=== PATIENT | male | born 1965 | race Caucasian/White ===

== ENCOUNTER 2018-11-19 19:55 | Emergency (ER) | payer OTHER ==
[~2018-11-19] VITALS: Ht 180.3 cm; Wt 91.4 kg
[~2018-11-19 19:55] MED LIST: ASPIRIN PO; ATOR1TAB21 PO; B-12100010 PO; BACI500O74 EXT; CLAR1TAB2 PO; CYAN100049 PO; GABA-843 PO; HYDR-2541 PO; HYDR-3719 PO; IBUP-1022 PO; KEFL500C17 PO; LIPI20TA PO; LISI40TA52 PO; LORATADINE; OMEP40CA97 PO
[2018-11-19] MEDS ORDERED: NS 1,000 ML IV ONE ×2 (20:15→21:45)
[2018-11-19] MEDS ORDERED: methylPREDNISolone INJ 125 MG/2 ML VIAL (J2930) IV ONE (20:15)
[2018-11-19 21:02] LABS: BASO % 0.1 % (0.0-1.0); EOS # 0.1 10^3/uL (0.0-0.50); EOS % 1.4 % (0.0-3.0); HEMATOCRIT 49.6 % (42.0-52.0); HEMOGLOBIN 17.1 g/dl (13.5-17.5); LYMPH # 2.2 10^3/uL (1.5-4.5); LYMPH % 21.6 % (24.0-44.0); MEAN CORPUSCULAR HEMOGLOBIN 31.4 pg (27.0-33.0); MEAN CORPUSCULAR HGB CONC 34.5 g/dl (32.0-36.5); MEAN CORPUSCULAR VOLUME 91.2 fl (80.0-96.0); MONO # 0.3 10^3/uL (0.0-0.8); MONO % 2.9 % (0.0-5.0); NEUTROPHILS # 7.5 10^3/uL (1.8-7.7); NEUTROPHILS % 73.6 % (36.0-66.0); PLATELET COUNT, AUTOMATED 207 10^3/uL (150-450); RED BLOOD COUNT 5.44 10^6/uL (4.30-6.10); WHITE BLOOD COUNT 10.2 10^3/uL (4.0-10.0)
[2018-11-19 21:25] LABS: OSMOLALITY SERUM 325 MOSM/KG (275-295)
[2018-11-19 21:39] LABS: BLOOD UREA NITROGEN 7 MG/DL (7-18); CALCIUM LEVEL 8.6 MG/DL (8.5-10.1); CARBON DIOXIDE LEVEL 20 MEQ/L (21-32); CHLORIDE LEVEL 101 MEQ/L (98-107); CK-MB VALUE MASS 3.2 NG/ML (<3.6); CPK CREATINE PHOSPHOKINASE 388 U/L (39-308); CREATININE FOR GFR 1.03 MG/DL (0.70-1.30); GLOMERULAR FILTRATION RATE > 60.0 (>56); GLUCOSE, FASTING 165 MG/DL (70-100); MB/CK RELATIVE INDEX 0.82 (< OR =4); POTASSIUM SERUM 3.5 MEQ/L (3.5-5.1); SODIUM LEVEL 137 MEQ/L (136-145); TROPONIN I < 0.02 NG/ML (< 0.10)
[2018-11-20 01:32] LABS: VENOUS BASE EXCESS -7.9 (-2.0-2.0); VENOUS HCO3 16.6 MEQ/L (23.0-27.0); VENOUS O2 SATURATION 97.7 % (60.0-80.0); VENOUS PARTIAL PRESSURE CO2 31.9 mmHg (38.0-50.0); VENOUS PARTIAL PRESSURE O2 104.2 mmHg (30.0-50.0); VENOUS PH 7.334 UNITS (7.330-7.430); VENOUS STANDARD HCO3 18.2 MEQ/L; VENOUS TOTAL CO2 17.6 MEQ/L (24.0-28.0)
[2018-11-20] MEDS ORDERED: HYDR-3719 PO (02:09)
[2018-11-20] MEDS ORDERED: PRED20TA PO (02:28)
[2018-11-20 02:49] VITALS: BP 169/99
[2018-11-20 02:56] LABS: AMPHETAMINES LEVEL URINE NEGATIVE (NEGATIVE); BARBITURATES URINE NEGATIVE (NEGATIVE); BENZODIAZEPINES URINE NEGATIVE (NEGATIVE); CANNABINOIDS URINE NEGATIVE (NEGATIVE); COCAINE METABOLITE URINE NEGATIVE (NEGATIVE); METHADONE URINE NEGATIVE (NEGATIVE); OPIATES URINE POSITIVE (NEGATIVE); PHENCYCLIDINE URINE NEGATIVE (NEGATIVE)
--- NOTE | 2018-11-20 06:31 | ECGEPIP ---
[facility] - ED Test Date: 2018-11-19 Pat Name: ULI MCMILLAN Department: Room: - Gender: Male [employer] Developer: DINAH : 1965 Requested By: BERNIE Mendez Order Number: [id number] Reading MD: Sonali Mccord Measurements Intervals [place] Rate: 91 P: 40 SC: 152 QRS: -48 QRSD: 100 T: 14 QT: 380 QTc: 468 Interpretive Statements SINUS RHYTHM INCOMPLETE RIGHT BUNDLE BRANCH BLOCK LAD LEFT ANTERIOR FASCICULAR BLOCK POSSIBLE ANTERIOR MYOCARDIAL INFARCTION, OF INDETERMINATE AGE PROLONGED QTC DELAYED R WAVE PROGRESSION NONSPECIFIC ST T WAVE CHANGES CW 11/11/[address] T WAVE CHANGES Electronically Signed on 11-20-2018 6:31:25 EDT by Sonali Mccord
--- NOTE | 2018-11-21 11:54 | REP ---
AP PORTABLE CHEST: 11/19/2018. COMPARISON: 11/11/2015. CLINICAL HISTORY: Dyspnea and cough. FINDINGS: Lungs are very hypoinflated. There are crowded markings in the base. Patchy basilar atelectatic changes are noted. Posterior lower lung zone infiltrates, atelectasis, or effusion could be obscured. No gross effusion, dense consolidation with atelectasis, or other acute finding. Heart size not enlarged for this degree of inflation and portable technique. Oxygen tubing overlies the chest as does C6-7 anterior cervical fusion hardware. Degenerative changes of the left shoulder and AC joint as well as the spine. IMPRESSION: 1. Hypoinflated chest with some crowded markings in the bases and exaggeration of heart size. That said, no dense consolidation with air bronchogram, gross effusion, or edema. Electronically Signed by Michel Flores MD 11/21/2018 12:17 P
== END 2018-11-20 03:07 | disposition home or self-care (01) ==
LOC: EDBD 19:55 → M ED 19:55
DX: T78.40XA Allergy, unspecified, initial encounter (principal); I45.19 Other right bundle-branch block; I44.4 Left anterior fascicular block; I10 Essential (primary) hypertension; Z72.0 Tobacco use; Z79.82 Long term (current) use of aspirin; Z79.899 Other long term (current) drug therapy
CPT/HCPCS: 36600; 71045; 80048; 80307; 82550; 82553; 82803; 83605; 83930; 84484; 85025; 87040; 93005; 93041; 96374; 99285; G0480; J2930

== ENCOUNTER → 2021-03-19 | Outpatient (REF) ==
[~2021-03-19] MED LIST changes: +GABA-282 PO; -GABA-843 PO; +OMEP40CA4 PO; -OMEP40CA97 PO; +PRED20TA PO
--- NOTE | 2021-03-19 09:50 | REP ---
INDICATION: PAIN COMPARISON: None. TECHNIQUE: AP, lateral, bilateral oblique views right hand. FINDINGS: There is focal degenerative change at the 5th distal interphalangeal joint with osteophytosis along the dorsal aspect of the joint space along with minimal joint space narrowing. Findings may be related to old injury. Remainder of the examination appears normal/age-appropriate. No further arthritic degenerative changes are appreciated. No evidence for further acute or healed injury. Surrounding soft tissues are normal. IMPRESSION: Focal degenerative changes at the 5th D IP joint. Otherwise normal examination. <Electronically signed by Clinton Stephenson > 03/19/21 [id number]
--- NOTE | 2021-03-19 09:51 | REP ---
INDICATION: PAIN COMPARISON: None. TECHNIQUE: AP, lateral, bilateral oblique views right foot. FINDINGS: Lateral view suggests pes planus. Very minimal joint space narrowing at the 1st metatarsophalangeal joint suggested. Remainder of the examination is essentially age-appropriate and normal. No evidence for acute or obvious healed injury. IMPRESSION: Mild changes as noted above. Essentially age-appropriate examination. <Electronically signed by Clinton Stephenson > 03/19/21 0957
--- NOTE | 2021-03-19 09:51 | REP ---
INDICATION: PAIN COMPARISON: None. TECHNIQUE: AP and lateral views left tibia/fibula FINDINGS: No acute fracture or dislocation. Joint spaces appear intact and essentially age-appropriate. Surrounding soft tissues are normal. IMPRESSION: Normal left tibia/fibular radiographs. No acute fracture or dislocation. <Electronically signed by Clinton Stephenson > 03/19/21 0953
== END ==
LOC: M PLAIMG 08:52
PROVIDERS: ATTEND Internal Medicine
DX: Z00.00 Encounter for general adult medical examination without abnormal findings (principal)

== ENCOUNTER 2022-12-08 14:17 | Inpatient (IN) | payer OTHER ==
[~2022-12-08] VITALS: Ht 188 cm; Wt 92.7 kg
[2022-12-08 17:50] LABS: BASO # 0.1 10^3/uL (0.0-0.2); BASO % 0.5 % (0.0-1.0); EOS # 0.2 10^3/uL (0.0-0.5); EOS % 1.6 % (0.0-3.0); HEMATOCRIT 37.7 % (42.0-52.0); HEMOGLOBIN 13.4 g/dl (13.5-17.5); LYMPH # 1.1 10^3/uL (1.5-5.0); LYMPH % 8.8 % (24.0-44.0); MEAN CORPUSCULAR HEMOGLOBIN 30.7 pg (27.0-33.0); MEAN CORPUSCULAR HGB CONC 35.5 g/dl (32.0-36.5); MEAN CORPUSCULAR VOLUME 86.3 fl (80.0-96.0); MONO % 8.1 % (2.0-8.0); NEUTROPHILS # 10.2 10^3/uL (1.5-8.5); NEUTROPHILS % 79.3 % (36.0-66.0); PLATELET COUNT, AUTOMATED 171 10^3/uL (150-450); RED BLOOD COUNT 4.37 10^6/uL (4.30-6.10); WHITE BLOOD COUNT 12.8 10^3/uL (4.0-10.0)
[2022-12-08] MEDS ORDERED: NS 1,000 ML IV ONE ×2 (17:50→18:55)
[2022-12-08 18:13] LABS: INR 1.11
[2022-12-08 18:14] LABS: CK-MB VALUE MASS 2.9 NG/ML (<3.6); PARTIAL THROMBOPLASTIN TIME 30.6 SECONDS (24.8-34.2)
[2022-12-08 18:16] LABS: D-DIMER QUANT 1.43 ug/mL (<0.5)
[2022-12-08 18:18] LABS: THYROID STIMULATING HORMONE 3.741 uIU/ML (0.55-4.78)
[2022-12-08 18:19] LABS: FREE THYROXINE INDEX 4.4 % (1.4-3.8); T UPTAKE 43.6 % (22.5-37.0)
[2022-12-08 18:26] LABS: ALBUMIN 3.9 G/DL (3.2-5.2); ALKALINE PHOSPHATASE 90 U/L (46-116); ALT/SGPT 53 U/L (7.0-40); AST/SGOT 77 U/L (<34); BILIRUBIN,TOTAL 0.6 MG/DL (0.3-1.2); BLOOD UREA NITROGEN 12 MG/DL (9-23); CALCIUM LEVEL 8.9 MG/DL (8.5-10.1); CARBON DIOXIDE LEVEL 23 MMOL/L (20-31); CHLORIDE LEVEL 87 MMOL/L (98-107); CPK CREATINE PHOSPHOKINASE 132 U/L (46-171); CREATININE FOR GFR 0.79 MG/DL (0.70-1.30); GLOMERULAR FILTRATION RATE > 60.0 (>56); GLUCOSE, FASTING 110 MG/DL (60-100); MB/CK RELATIVE INDEX 2.19 (< OR =4); SODIUM LEVEL 119 MMOL/L (136-145); TOTAL PROTEIN 7.3 G/DL (5.7-8.2)
[2022-12-08] MEDS ORDERED: POTASSIUM CHLORIDE 10MEQ SR TABLET PO ONE (18:55)
[2022-12-08] MEDS ORDERED: ISOVUE-370 76% 100ML VIAL As Ordered ONE (18:59)
[2022-12-08] MEDS ORDERED: LISI40TA4 PO (20:51)
[2022-12-08] MEDS ORDERED: HYDR-3490 PO (20:51)
[2022-12-08] MEDS ORDERED: ECOT81TA5 PO (20:51)
[2022-12-08] MEDS ORDERED: HOME MED LIST COMPLETE! XX SCH (20:55)
[2022-12-08] MEDS ORDERED: MOM 30ML SUSPENSION UDC PO PRN (22:40)
[2022-12-08] MEDS ORDERED: MAALOX 30 ML SUSP *UDC PO PRN (22:40)
[2022-12-08 23:01] VITALS: BP 118/72; TEMP 97.5; O2SAT 95
[2022-12-08 23:13] LABS: MAGNESIUM LEVEL 1.9 MG/DL (1.8-2.4)
[2022-12-08 23:56] LABS: OSMOLALITY SERUM 246 MOSM/KG (275-295)
[2022-12-09] MEDS: OMEPRAZOLE 20MG CAP PO SCH ×4 (00:59→20:26)
[2022-12-09] MEDS: CYANOCOBALAMIN 500 MCG TAB PO SCH ×2 (01:00→20:26)
[2022-12-09] MEDS: ATORVASTATIN 20 MG TAB PO SCH ×2 (01:00→20:26)
[2022-12-09] MEDS: GABAPENTIN 300 MG CAP PO SCH ×4 (01:00→20:24)
[2022-12-09] MEDS ORDERED: LORazepam 2 MG TAB PO PRN (01:30)
[2022-12-09 01:40] LABS: APPEARANCE, URINE CLEAR (CLEAR); BACTERIA, URINE AUTO NEGATIVE (NEGATIVE); BILIRUBIN, URINE AUTO NEGATIVE (NEGATIVE); BLOOD, URINE BLOOD NEGATIVE (NEGATIVE); COLOR, URINE YELLOW (YELLOW); GLUCOSE, URINE (UA) AUTO NEGATIVE (NEGATIVE); KETONE, URINE AUTO NEGATIVE (NEGATIVE); LEUKOCYTE ESTERASE, URINE AUTO NEGATIVE (NEGATIVE); NITRITE, URINE AUTO NEGATIVE (NEGATIVE); PROTEIN, URINE AUTO NEGATIVE (NEGATIVE); RBC, URINE AUTO 0 /HPF (0-3); SPECIFIC GRAVITY URINE AUTO 1.019 (1.002-1.035); SQUAMOUS EPITHELIAL CELL UR AU 0 /HPF (0-6); WBC, URINE AUTO 0 /HPF (0-3)
[2022-12-09] MEDS: THIAMINE 100 MG TAB PO SCH ×3 (01:55→20:26)
[2022-12-09 02:05] LABS: CREATININE,RANDOM URINE 58.2 MG/DL
[2022-12-09 03:27] VITALS: BP 115/58; TEMP 97.6; O2SAT 98
[2022-12-09 06:03] LABS: BASO # 0.1 10^3/uL (0.0-0.2); BASO % 0.5 % (0.0-1.0); EOS # 0.2 10^3/uL (0.0-0.5); EOS % 1.3 % (0.0-3.0); HEMOGLOBIN 13.2 g/dl (13.5-17.5); LYMPH # 1.2 10^3/uL (1.5-5.0); LYMPH % 9.2 % (24.0-44.0); MEAN CORPUSCULAR HEMOGLOBIN 30.2 pg (27.0-33.0); MEAN CORPUSCULAR HGB CONC 34.7 g/dl (32.0-36.5); MONO # 1.1 10^3/uL (0.0-0.8); MONO % 8.4 % (2.0-8.0); NEUTROPHILS # 10.2 10^3/uL (1.5-8.5); NEUTROPHILS % 79.2 % (36.0-66.0); PLATELET COUNT, AUTOMATED 175 10^3/uL (150-450); RED BLOOD COUNT 4.37 10^6/uL (4.30-6.10); WHITE BLOOD COUNT 12.9 10^3/uL (4.0-10.0)
[2022-12-09 06:24] VITALS: BP 108/63; TEMP 97.2; O2SAT 97
[2022-12-09 06:31] LABS: BLOOD UREA NITROGEN 10 MG/DL (9-23); CALCIUM LEVEL 8.7 MG/DL (8.5-10.1); CARBON DIOXIDE LEVEL 22 MMOL/L (20-31); CHLORIDE LEVEL 93 MMOL/L (98-107); CREATININE FOR GFR 0.54 MG/DL (0.70-1.30); GLOMERULAR FILTRATION RATE > 60.0 (>56); GLUCOSE, FASTING 103 MG/DL (60-100); MAGNESIUM LEVEL 2.1 MG/DL (1.8-2.4); POTASSIUM SERUM 2.9 MMOL/L (3.5-5.1); SODIUM LEVEL 124 MMOL/L (136-145)
[2022-12-09 07:24] VITALS: BP 100/58; TEMP 97.4; O2SAT 100
[2022-12-09 08:00] LABS: PHOSPHORUS LEVEL 3.7 MG/DL (2.5-4.9)
[2022-12-09] MEDS ORDERED: POTASSIUM CHLORIDE 10% LIQ 20MEQ/15ML UDC PO ONE (08:00)
[2022-12-09] MEDS: KCL 10MEQ/100ML SWI (KRUN) 10 MEQ in IV 1 EA IV SCH ×2 (08:05→09:42)
[2022-12-09 08:17] LABS: PROCALCITONIN 0.12 ng/ml
[2022-12-09] MEDS: MIRALAX *UNIT DOSE* 17GM PACKET PO SCH ×2 (09:00→16:35)
[2022-12-09] MEDS: SENOKOT S TAB PO SCH ×2 (09:00→20:26)
[2022-12-09] MEDS: ASPIRIN 81MG ENTERIC TABLET PO SCH (09:43)
[2022-12-09] MEDS: MULTIVITAMINS/MINERALS THERAP 1 TAB PO SCH (09:43)
[2022-12-09] MEDS: ENOXAPARIN 40MG/0.4ML SYRINGE (J1650 PER 10MG) SC SCH (09:43)
[2022-12-09] MEDS: FOLIC ACID 1MG TAB PO SCH (09:43)
[2022-12-09] MEDS ORDERED: POTASSIUM CHLORIDE 10MEQ SR TABLET PO SCH (12:00)
[2022-12-09 12:18] VITALS: BP 111/56; TEMP 97; O2SAT 95
[2022-12-09 12:52] LABS: BLOOD UREA NITROGEN 10 MG/DL (9-23); CALCIUM LEVEL 8.7 MG/DL (8.5-10.1); CARBON DIOXIDE LEVEL 22 MMOL/L (20-31); CHLORIDE LEVEL 94 MMOL/L (98-107); CREATININE FOR GFR 0.57 MG/DL (0.70-1.30); GLOMERULAR FILTRATION RATE > 60.0 (>56); GLUCOSE, FASTING 108 MG/DL (60-100); POTASSIUM SERUM 3.7 MMOL/L (3.5-5.1); SODIUM LEVEL 124 MMOL/L (136-145)
[2022-12-09] MEDS: LACTULOSE 20GM/30ML SYRUP UDC PO SCH (16:35)
[2022-12-09 17:02] VITALS: BP 109/53; TEMP 97.9; O2SAT 97
[2022-12-09 20:00] VITALS: BP 119/58; TEMP 97.3; O2SAT 98
[2022-12-09] MEDS: POTASSIUM CHLORIDE 10MEQ SR TABLET PO SCH (20:24)
[2022-12-09] MEDS: ANEXSIA, NORCO 7.5MG/325MG TABLET(HYDROCODONE/APAP) PO PRN (20:25)
[2022-12-09] MEDS: FLUTICASONE PROP 0.05% NASAL SPRAY 16 GM (FLONASE) NARES SCH (20:26)
[2022-12-10 04:23] LABS: BASO % 0.4 % (0.0-1.0); EOS # 0.2 10^3/uL (0.0-0.5); EOS % 1.9 % (0.0-3.0); HEMATOCRIT 36.3 % (42.0-52.0); HEMOGLOBIN 12.4 g/dl (13.5-17.5); LYMPH # 1.5 10^3/uL (1.5-5.0); LYMPH % 15.4 % (24.0-44.0); MEAN CORPUSCULAR HEMOGLOBIN 30.3 pg (27.0-33.0); MEAN CORPUSCULAR HGB CONC 34.2 g/dl (32.0-36.5); MEAN CORPUSCULAR VOLUME 88.8 fl (80.0-96.0); MONO # 0.9 10^3/uL (0.0-0.8); MONO % 8.9 % (2.0-8.0); NEUTROPHILS # 6.9 10^3/uL (1.5-8.5); NEUTROPHILS % 71.9 % (36.0-66.0); PLATELET COUNT, AUTOMATED 167 10^3/uL (150-450); RED BLOOD COUNT 4.09 10^6/uL (4.30-6.10); WHITE BLOOD COUNT 9.6 10^3/uL (4.0-10.0)
[2022-12-10 05:24] LABS: BLOOD UREA NITROGEN 8 MG/DL (9-23); CALCIUM LEVEL 9.1 MG/DL (8.5-10.1); CARBON DIOXIDE LEVEL 22 MMOL/L (20-31); CHLORIDE LEVEL 98 MMOL/L (98-107); CREATININE FOR GFR 0.59 MG/DL (0.70-1.30); GLOMERULAR FILTRATION RATE > 60.0 (>56); GLUCOSE, FASTING 99 MG/DL (60-100); MAGNESIUM LEVEL 1.9 MG/DL (1.8-2.4); POTASSIUM SERUM 3.5 MMOL/L (3.5-5.1); SODIUM LEVEL 128 MMOL/L (136-145)
[2022-12-10 08:00] VITALS: BP 115/58
[2022-12-10 08:08] VITALS: BP 114/58; TEMP 98; O2SAT 96
[2022-12-10] MEDS: ACETAMINOPHEN TAB 650MG DOSE (2X325MG) PO PRN ×2 (08:16→13:53)
[2022-12-10] MEDS: ASPIRIN 81MG ENTERIC TABLET PO SCH (09:21)
[2022-12-10] MEDS: LACTULOSE 20GM/30ML SYRUP UDC PO SCH ×2 (09:22→20:50)
[2022-12-10] MEDS: GABAPENTIN 300 MG CAP PO SCH ×3 (09:22→20:46)
[2022-12-10] MEDS: THIAMINE 100 MG TAB PO SCH ×2 (09:22→20:46)
[2022-12-10] MEDS: FOLIC ACID 1MG TAB PO SCH (09:22)
[2022-12-10] MEDS: ENOXAPARIN 40MG/0.4ML SYRINGE (J1650 PER 10MG) SC SCH (09:22)
[2022-12-10] MEDS: MULTIVITAMINS/MINERALS THERAP 1 TAB PO SCH (09:22)
[2022-12-10] MEDS: OMEPRAZOLE 20MG CAP PO SCH ×2 (09:22→20:45)
[2022-12-10] MEDS: SENOKOT S TAB PO SCH (09:22)
[2022-12-10] MEDS: MIRALAX *UNIT DOSE* 17GM PACKET PO SCH (09:23)
[2022-12-10] MEDS: POTASSIUM CHLORIDE 10MEQ SR TABLET PO SCH ×2 (09:23→20:45)
[2022-12-10] MEDS ORDERED: KCL 20MEQ in NS 1000ML 1,000 ML IV SCH (09:40)
[2022-12-10] MEDS: FLUTICASONE PROP 0.05% NASAL SPRAY 16 GM (FLONASE) NARES SCH ×2 (10:01→20:46)
[2022-12-10 12:26] VITALS: BP 112/66; TEMP 97.2; O2SAT 96
[2022-12-10 16:25] VITALS: BP 124/66; TEMP 97.7; O2SAT 95
[2022-12-10] MEDS: CYANOCOBALAMIN 500 MCG TAB PO SCH (20:44)
[2022-12-10] MEDS: ATORVASTATIN 20 MG TAB PO SCH (20:46)
[2022-12-10] MEDS: ANEXSIA, NORCO 7.5MG/325MG TABLET(HYDROCODONE/APAP) PO PRN (20:55)
[2022-12-11 04:42] VITALS: BP 136/82; TEMP 97; O2SAT 98
[2022-12-11] MEDS: ANEXSIA, NORCO 7.5MG/325MG TABLET(HYDROCODONE/APAP) PO PRN (05:57)
[2022-12-11 07:01] LABS: BASO # 0.1 10^3/uL (0.0-0.2); BASO % 0.6 % (0.0-1.0); EOS # 0.1 10^3/uL (0.0-0.5); EOS % 1.5 % (0.0-3.0); HEMATOCRIT 34.4 % (42.0-52.0); HEMOGLOBIN 11.4 g/dl (13.5-17.5); LYMPH # 1.3 10^3/uL (1.5-5.0); LYMPH % 15.7 % (24.0-44.0); MEAN CORPUSCULAR HEMOGLOBIN 30.1 pg (27.0-33.0); MEAN CORPUSCULAR HGB CONC 33.1 g/dl (32.0-36.5); MEAN CORPUSCULAR VOLUME 90.8 fl (80.0-96.0); MONO # 0.7 10^3/uL (0.0-0.8); MONO % 8.1 % (2.0-8.0); NEUTROPHILS # 6.2 10^3/uL (1.5-8.5); NEUTROPHILS % 73.2 % (36.0-66.0); PLATELET COUNT, AUTOMATED 145 10^3/uL (150-450); RED BLOOD COUNT 3.79 10^6/uL (4.30-6.10); WHITE BLOOD COUNT 8.5 10^3/uL (4.0-10.0)
[2022-12-11 07:36] LABS: BLOOD UREA NITROGEN 6 MG/DL (9-23); CALCIUM LEVEL 8.6 MG/DL (8.5-10.1); CARBON DIOXIDE LEVEL 21 MMOL/L (20-31); CHLORIDE LEVEL 102 MMOL/L (98-107); CREATININE FOR GFR 0.57 MG/DL (0.70-1.30); GLOMERULAR FILTRATION RATE > 60.0 (>56); GLUCOSE, FASTING 92 MG/DL (60-100); MAGNESIUM LEVEL 1.8 MG/DL (1.8-2.4); POTASSIUM SERUM 3.8 MMOL/L (3.5-5.1); SODIUM LEVEL 132 MMOL/L (136-145)
[2022-12-11 08:00] VITALS: BP 119/57; TEMP 97.6; O2SAT 97
[2022-12-11] MEDS: LACTULOSE 20GM/30ML SYRUP UDC PO SCH (09:00)
[2022-12-11] MEDS: THIAMINE 100 MG TAB PO SCH (09:19)
[2022-12-11] MEDS: ASPIRIN 81MG ENTERIC TABLET PO SCH (09:19)
[2022-12-11] MEDS: POTASSIUM CHLORIDE 10MEQ SR TABLET PO SCH (09:19)
[2022-12-11] MEDS: OMEPRAZOLE 20MG CAP PO SCH (09:20)
[2022-12-11] MEDS: MULTIVITAMINS/MINERALS THERAP 1 TAB PO SCH (09:20)
[2022-12-11] MEDS: ENOXAPARIN 40MG/0.4ML SYRINGE (J1650 PER 10MG) SC SCH (09:20)
[2022-12-11] MEDS: FLUTICASONE PROP 0.05% NASAL SPRAY 16 GM (FLONASE) NARES SCH (09:20)
[2022-12-11] MEDS: FOLIC ACID 1MG TAB PO SCH (09:20)
[2022-12-11] MEDS: GABAPENTIN 300 MG CAP PO SCH (09:20)
[2022-12-11] MEDS ORDERED: FLUT50SP17 NARES (10:52)
[2022-12-11] MEDS ORDERED: FOLI1TAB11 PO (10:52)
[2022-12-11] MEDS ORDERED: VITMTA PO (10:52)
[2022-12-11] MEDS ORDERED: THIA100TA PO (10:52)
[2022-12-11] MEDS ORDERED: AMLO1TAB24 PO (10:53)
[2022-12-11] MEDS ORDERED: LACT10SO3 PO (10:55)
[2022-12-11] MEDS ORDERED: LACT20EL PO (11:25)
== END 2022-12-11 12:04 | disposition home or self-care (01) | DRG 641 ==
LOC: M ED 14:17 → M ED INP 22:10 → ENRESERV 22:25 → M PCU 22:57
PROVIDERS: ADMIT Family Medicine; ATTEND Internal Medicine
DX: E87.1 Hypo-osmolality and hyponatremia (principal); I10 Essential (primary) hypertension; E78.5 Hyperlipidemia, unspecified; F17.220 Nicotine dependence, chewing tobacco, uncomplicated; G62.9 Polyneuropathy, unspecified; R91.8 Other nonspecific abnormal finding of lung field; K21.9 Gastro-esophageal reflux disease without esophagitis; R53.1 Weakness; F10.20 Alcohol dependence, uncomplicated; H53.8 Other visual disturbances; D72.829 Elevated white blood cell count, unspecified; E87.6 Hypokalemia; E86.0 Dehydration; K59.00 Constipation, unspecified; R74.01 Elevation of levels of liver transaminase levels; D64.9 Anemia, unspecified; R97.20 Elevated prostate specific antigen [PSA]; Z79.82 Long term (current) use of aspirin; Z79.899 Other long term (current) drug therapy

== ENCOUNTER → 2024-06-29 | Outpatient (REF) | payer OTHER ==
[~2024-06-29] MED LIST changes: +ALLO100T PO; +AMLO1TAB24 PO; +ECOT81TA5 PO; +FAMO10TA50 PO; +FLUTISP NARES; +FOLI1TAB11 PO; +GABA-1172 PO; -GABA-282 PO; +HYDR-3490 PO; +LACT10SO94 PO; +LACT20EL PO; +LEVO88CA PO; +LISI40TA4 PO; +METF10004 PO; +METO200T15 PO; +ROSU20TA86 PO; +THIA100TA PO; +VITMTA PO
== END ==
LOC: M SFHCDERM 13:24
PROVIDERS: ATTEND Nurse Practitioner Family
DX: L20.9 Atopic dermatitis, unspecified (principal)

== ENCOUNTER → 2024-08-10 | Outpatient (CLI) | payer OTHER ==
[~2024-08-10] MED LIST changes: +ISOVUE-300 61% 100ML VIAL As Ordered ONE; -LEVO88CA PO; +LEVO88CA2 PO; +LIDOCAINE 1% MDV 20ML VIAL As Ordered ONE; +methylPREDNISolone SUSP 40MG/ML 1ML VIAL (DEPO MEDROL) As Ordered ONE
== END ==
LOC: M RAD 13:46
PROVIDERS: ATTEND Orthopaedic Surgery
DX: M16.12 Unilateral primary osteoarthritis, left hip (principal)
CPT/HCPCS: 20610; 77002; J0665; J1010; Q9967

== ENCOUNTER 2024-08-12 11:10 | Emergency (ER) | payer OTHER ==
[~2024-08-12] VITALS: Ht 188 cm; Wt 100.0 kg
[~2024-08-12 11:10] MED LIST changes: -ISOVUE-300 61% 100ML VIAL As Ordered ONE; -LIDOCAINE 1% MDV 20ML VIAL As Ordered ONE; -methylPREDNISolone SUSP 40MG/ML 1ML VIAL (DEPO MEDROL) As Ordered ONE
[2024-08-12 13:09] LABS: BASO % 0.1 % (0.0-1.0); EOS % 0.1 % (0.0-3.0); HEMATOCRIT 43.6 % (42.0-52.0); HEMOGLOBIN 13.7 g/dl (13.5-17.5); LYMPH # 1.1 10^3/uL (1.5-5.0); LYMPH % 9.4 % (24.0-44.0); MEAN CORPUSCULAR HEMOGLOBIN 30.2 pg (27.0-33.0); MEAN CORPUSCULAR HGB CONC 31.4 g/dl (32.0-36.5); MONO # 0.9 10^3/uL (0.0-0.8); MONO % 7.9 % (2.0-8.0); NEUTROPHILS # 9.7 10^3/uL (1.5-8.5); NEUTROPHILS % 82.1 % (36.0-66.0); PLATELET COUNT, AUTOMATED 177 10^3/uL (150-450); RED BLOOD COUNT 4.54 10^6/uL (4.30-6.10); WHITE BLOOD COUNT 11.8 10^3/uL (4.0-10.0)
[2024-08-12] MEDS: AMPICILLIN SOD/SULBACTAM SOD 3 GM in DEXTROSE 5% (D5W) MINI-BAG PLU 100 ML IV ONE (13:10)
[2024-08-12] MEDS: BOOSTRIX VACCINE (TETANUS/DIPHTH/ACEL. PERTUSSIS) 0.5ML SYR IM.IMMUN ONE (13:11)
[2024-08-12] MEDS: MORPHINE 4 MG/ML 1ML VIAL IV PRN (13:11)
[2024-08-12 13:20] LABS: INR 0.99; PROTHROMBIN TIME 13.4 SECONDS (12.5-14.5)
[2024-08-12 13:33] LABS: ETHYL ALCOHOL (ETHANOL) 0.161 % (0.000-0.010)
[2024-08-12 13:35] LABS: BLOOD UREA NITROGEN 9 MG/DL (9-23); CALCIUM LEVEL 9.4 MG/DL (8.5-10.1); CARBON DIOXIDE LEVEL 23 MMOL/L (20-31); CHLORIDE LEVEL 103 MMOL/L (98-107); CREATININE FOR GFR 0.53 MG/DL (0.70-1.30); GLOMERULAR FILTRATION RATE > 90.0 (>56); GLUCOSE, FASTING 139 MG/DL (60-100); MAGNESIUM LEVEL 2.2 MG/DL (1.8-2.4); POTASSIUM SERUM 4.3 MMOL/L (3.5-5.1); SODIUM LEVEL 137 MMOL/L (136-145)
[2024-08-12] MEDS ORDERED: AMOX875T2 PO (13:43)
[2024-08-12 14:21] VITALS: BP 108/66; TEMP 98.2; O2SAT 93
== END 2024-08-12 14:30 | disposition home or self-care (01) ==
LOC: M ED 11:10
DX: S51.802A Unspecified open wound of left forearm, initial encounter (principal); Y92.9 Unspecified place or not applicable; Y93.9 Activity, unspecified; Y99.9 Unspecified external cause status; W54.0XXA Bitten by dog, initial encounter; I45.10 Unspecified right bundle-branch block; I10 Essential (primary) hypertension; F10.10 Alcohol abuse, uncomplicated; Z23 Encounter for immunization; Z79.1 Long term (current) use of non-steroidal anti-inflammatories (NSAID); Z79.2 Long term (current) use of antibiotics; Z79.84 Long term (current) use of oral hypoglycemic drugs; Z79.899 Other long term (current) drug therapy
CPT/HCPCS: 71045; 73090; 73110; 73130; 80048; 82077; 83735; 85025; 85610; 90471; 90715; 93005; 96365; 96375; 99284; J0295

== ENCOUNTER 2024-08-15 07:53 | Emergency (ER) | payer OTHER ==
[~2024-08-15] VITALS: Ht 188 cm; Wt 100.6 kg
[~2024-08-15 07:53] MED LIST changes: +AMOX875T2 PO
[2024-08-15] MEDS ORDERED: RABIES IMMUNE GLOBULIN 1500 INTERNATIONAL UNIT/5ML VIAL IM.IMMUN ONE (09:15)
[2024-08-15] MEDS: NORCO, ANEXSIA 5/325MG TABLET (HYDROcodone/ACETAMINOPHEN) PO ONE (09:47)
[2024-08-15] MEDS: RABIES VACCINE HUMAN 2.5 INTERNATIONAL UNITS/ML VIAL (IMOVAX) IM ONE (10:05)
[2024-08-15] MEDS: RABIES IMMUNE GLOBULIN 1500 INTERNATIONAL UNIT/5ML VIAL IM.IMMUN ONE (10:06)
[2024-08-15] MEDS: RABIES IMMUNE GLOBULIN 300 INTERNATIONAL UNITS/1ML VIAL IM.IMMUN ONE (10:07)
[2024-08-15 10:26] VITALS: BP 155/74; TEMP 97.3; O2SAT 95
== END 2024-08-15 10:28 | disposition home or self-care (01) ==
LOC: M ED 07:53
DX: Z29.14 Encounter for prophylactic rabies immune globulin (principal); Z20.3 Contact with and (suspected) exposure to rabies; Z23 Encounter for immunization; E11.9 Type 2 diabetes mellitus without complications; Z79.1 Long term (current) use of non-steroidal anti-inflammatories (NSAID); Z79.2 Long term (current) use of antibiotics; Z79.899 Other long term (current) drug therapy; Z79.84 Long term (current) use of oral hypoglycemic drugs

== ENCOUNTER 2024-08-18 08:33 | Emergency (ER) | payer OTHER ==
[~2024-08-18] VITALS: Ht 188 cm; Wt 99.0 kg
[2024-08-18 08:35] VITALS: BP 137/71; TEMP 99.5; O2SAT 96
[2024-08-18] MEDS ORDERED: BOOSTRIX VACCINE (TETANUS/DIPHTH/ACEL. PERTUSSIS) 0.5ML SYR IM.IMMUN ONE (09:20)
[2024-08-18] MEDS: KETOROLAC 60MG 2ML VIAL IM ONE (09:37)
[2024-08-18] MEDS: RABIES VACCINE HUMAN 2.5 INTERNATIONAL UNITS/ML VIAL (IMOVAX) IM ONE (09:37)
== END 2024-08-18 10:04 | disposition home or self-care (01) ==
LOC: M ED 08:33
DX: Z29.14 Encounter for prophylactic rabies immune globulin (principal); Z20.3 Contact with and (suspected) exposure to rabies; Z23 Encounter for immunization; E11.9 Type 2 diabetes mellitus without complications; E03.9 Hypothyroidism, unspecified; I10 Essential (primary) hypertension; K21.9 Gastro-esophageal reflux disease without esophagitis; Z79.2 Long term (current) use of antibiotics; Z79.84 Long term (current) use of oral hypoglycemic drugs; Z79.899 Other long term (current) drug therapy
CPT/HCPCS: 90471; 90675; 96372; 99283; J1885

== ENCOUNTER 2024-08-22 07:41 | Emergency (ER) | payer OTHER ==
[~2024-08-22] VITALS: Ht 188 cm; Wt 99.5 kg
[2024-08-22 08:41] VITALS: BP 100/58; TEMP 97.7; O2SAT 94
[2024-08-22] MEDS: RABIES VACCINE HUMAN 2.5 INTERNATIONAL UNITS/ML VIAL (IMOVAX) IM ONE (09:10)
[2024-08-22] MEDS: KETOROLAC 60MG 2ML VIAL IM ONE (09:13)
== END 2024-08-22 09:25 | disposition home or self-care (01) ==
LOC: M ED 07:41
DX: Z29.14 Encounter for prophylactic rabies immune globulin (principal); Z20.3 Contact with and (suspected) exposure to rabies; Z23 Encounter for immunization; I10 Essential (primary) hypertension; E03.9 Hypothyroidism, unspecified; Z79.1 Long term (current) use of non-steroidal anti-inflammatories (NSAID); Z79.2 Long term (current) use of antibiotics; Z79.84 Long term (current) use of oral hypoglycemic drugs; Z79.899 Other long term (current) drug therapy
CPT/HCPCS: 90471; 90675; 96372; 99283; J1885

== ENCOUNTER → 2024-10-17 | Outpatient (CLI) | payer OTHER ==
[~2024-10-17] MED LIST changes: +LISI40TA10 PO; -LISI40TA4 PO
== END ==
LOC: M SOG 07:07
PROVIDERS: ATTEND Orthopaedic Surgery
DX: M16.12 Unilateral primary osteoarthritis, left hip (principal)

== ENCOUNTER → 2024-10-19 | Outpatient (CLI) | payer OTHER | LOC: M SOG 07:06 | PROVIDERS: ATTEND Orthopaedic Surgery | DX: M16.12 Unilateral primary osteoarthritis, left hip (principal) ==

== ENCOUNTER → 2024-11-06 | Outpatient (CLI) | payer OTHER | LOC: M PLAIMG 07:02 | PROVIDERS: ATTEND Orthopaedic Surgery | DX: M16.12 Unilateral primary osteoarthritis, left hip (principal) ==

== ENCOUNTER → 2025-01-18 | Outpatient (CLI) | payer OTHER ==
[~2025-01-18] MED LIST changes: +ACET-907 PO; +BACL10TA2 PO; +HYDR-643 PO; -IBUP-1022 PO; +IBUP600T42 PO; +ISOVUE-300 61% 100 ML VIAL As Ordered ONE; +methylPREDNISolone SUSP 40 MG/ML 1 ML VIAL As Ordered ONE
== END ==
LOC: M RAD 14:14
PROVIDERS: ATTEND Orthopaedic Surgery
DX: M16.12 Unilateral primary osteoarthritis, left hip (principal)
CPT/HCPCS: 20610; 77002; J0665; J1010; Q9967

== ENCOUNTER 2025-01-31 12:10 | Day surgery (SDC) | payer OTHER ==
[~2025-01-31] VITALS: Ht 188 cm; Wt 103.0 kg
[~2025-01-31 12:10] MED LIST changes: -ISOVUE-300 61% 100 ML VIAL As Ordered ONE; -methylPREDNISolone SUSP 40 MG/ML 1 ML VIAL As Ordered ONE
[2025-01-31] MEDS ORDERED: LIDOCAINE 2% 100 MG/5 ML SDV (FOR ANES.) As Ordered ONE (12:43)
[2025-01-31 14:51] VITALS: TEMP 97.6
[2025-01-31 15:08] VITALS: BP 125/58; O2SAT 92
== END 2025-01-31 15:22 | disposition home or self-care (01) ==
LOC: M OPP 12:10
PROVIDERS: ATTEND Surgery
DX: Z12.11 Encounter for screening for malignant neoplasm of colon (principal); K31.89 Other diseases of stomach and duodenum; R10.13 Epigastric pain; G47.30 Sleep apnea, unspecified; Z79.82 Long term (current) use of aspirin; Z79.891 Long term (current) use of opiate analgesic; Z79.84 Long term (current) use of oral hypoglycemic drugs; Z79.899 Other long term (current) drug therapy; F17.220 Nicotine dependence, chewing tobacco, uncomplicated

== ENCOUNTER → 2025-02-12 | Outpatient (CLI) | payer OTHER | LOC: M RAD 07:24 | PROVIDERS: ATTEND Nurse Practitioner Family | DX: K42.1 Umbilical hernia with gangrene (principal) ==